=== PATIENT | female | born 1995 | race Caucasian/White ===

== ENCOUNTER 2019-06-23 18:38 | Emergency (ER) | payer OTHER ==
[2019-06-23 19:16] VITALS: BP 124/62
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
== END 2019-06-23 20:30 | disposition home or self-care (01) ==
LOC: ER 18:38
DX: M54.2 Cervicalgia (principal); M54.6 Pain in thoracic spine; R51 Headache; V87.7XXA Person injured in collision between other specified motor vehicles (traffic), initial encounter
CPT/HCPCS: 99283